=== PATIENT | female | born 1940 | race Caucasian/White ===

== ENCOUNTER 2021-08-06 13:51 | Emergency (ER) | payer OTHER ==
[~2021-08-06] VITALS: Ht 170.2 cm; Wt 81.7 kg
[~2021-08-06 13:51] MED LIST: APAP500 PO; ASPIRIN325 PO; CARDIZEM CD360 MG PO; COUMADIN 5 MG TA5 M1 PO; ENOXAPARIN30 MG/0.1 INJECTION; NORCO 5-325 TA1 EACH PO; OMEGA-3 FISH O1 EAC3 PO; OXYCODONE HCL 55 MG PO; PRED FORTE 1% EY5 M1 OP; XIBROM5 ML OP; ZYMAR5 ML OP
[2021-08-06] MEDS ORDERED: CEPHALEXIN500 MG PO (17:05)
[2021-08-06 17:08] VITALS: BP 140/69
== END 2021-08-06 17:08 | disposition home or self-care (01) ==
LOC: M.ERS 13:51
DX: S61.422A Laceration with foreign body of left hand, initial encounter (principal); I10 Essential (primary) hypertension; Z79.899 Other long term (current) drug therapy; Z90.710 Acquired absence of both cervix and uterus; Z88.8 Allergy status to other drugs, medicaments and biological substances; Z88.5 Allergy status to narcotic agent; Z88.6 Allergy status to analgesic agent; W45.8XXA Other foreign body or object entering through skin, initial encounter; Y93.89 Activity, other specified; Y92.89 Other specified places as the place of occurrence of the external cause; Y99.8 Other external cause status